=== PATIENT | male | born 1995 | race Two or more races ===

== ENCOUNTER 2017-11-05 19:09 | Emergency (ER) | payer SELFPAY ==
[~2017-11-05] VITALS: Ht 170.2 cm; Wt 87.4 kg
[2017-11-05 19:52] LABS: BASOPHILS # (AUTO) 0.07 x10^3/uL (0-0.1); BASOPHILS % (AUTO) 1 % (0-1); EOSINOPHILS # (AUTO) 0.43 x10^3/uL (0-0.4); EOSINOPHILS % (AUTO) 4 % (1-7); LYMPHOCYTES # (AUTO) 1.83 x10^3/uL (1-3.4); LYMPHOCYTES % (AUTO) 15 % (22-44); MD NO; MEAN CORPUSCULAR HGB CONC 34.1 g/dL (33.2-36.2); MEAN PLATELET VOLUME 8.2 fL (7.4-10.4); MONOCYTES # (AUTO) 0.65 x10^3/uL (0.2-0.8); MONOCYTES % (AUTO) 5 % (2-9); NEUTROPHILS # (AUTO) 9.41 x10^3/uL (1.8-6.8); NEUTROPHILS % (AUTO) 76 % (42-75); PLATELET COUNT 323 x10^3/uL (130-400); RED BLOOD COUNT 5.58 x10^6/uL (4.38-5.82)
[2017-11-05] MEDS ORDERED: KETOROLAC 30 MG/1 ML ONE (19:55)
[2017-11-05] MEDS ORDERED: KETOROLAC 30 MG/1 ML IVPush ONE (20:00)
[2017-11-05 20:02] LABS: ALBUMIN 4.2 g/dL (3.4-5.0); ANION GAP 9 mmol/L (5-15); CALCIUM 8.8 mg/dL (8.5-10.1); CHLORIDE 107 mmol/L (98-107)
[2017-11-05 20:05] LABS: TROPONIN I < 0.015 ng/mL (0.000-0.045)
[2017-11-05 20:32] VITALS: BP 127/67
== END 2017-11-05 20:38 | disposition home or self-care (01) ==
LOC: ED 20:08
DX: I30.0 Acute nonspecific idiopathic pericarditis (principal)
CPT/HCPCS: 36415; 71046; 80048; 82040; 84484; 85025; 93005; 96374; 99285; J1885

== ENCOUNTER 2019-02-15 00:15 | Emergency (ER) | payer SELFPAY ==
[~2019-02-15] VITALS: Ht 170.2 cm; Wt 67.0 kg
--- NOTE | 2019-02-15 00:54 | NUR ---
PT RETURNED FROM ULTRASOUND
[2019-02-15] MEDS ORDERED: KETOROLAC 30 MG/1 ML ONE ×2 (00:56→01:02)
[2019-02-15] MEDS ORDERED: HYDROmorphone 2 MG/ML, 1ML ONE (00:56)
[2019-02-15] MEDS ORDERED: KETOROLAC 30 MG/1 ML IM ONE (01:00)
[2019-02-15] MEDS ORDERED: HYDROmorphone 2 MG/ML, 1ML IM ONE (01:00)
--- NOTE | 2019-02-15 01:04 | NUR ---
MEDICATION DOSAGES GIVEN, PATIENT TOLERATED WELL. NO NOTED ACUTE IDSTRESS.
--- NOTE | 2019-02-15 01:25 | NUR ---
PT ATTEMPTING UA AT THIS TIME.
[2019-02-15] MEDS ORDERED: CEFTRIAXONE 1,000 MG IM ONE (01:30)
[2019-02-15] MEDS ORDERED: CEFTRIAXONE 1,000 MG ONE (01:35)
--- NOTE | 2019-02-15 01:43 | NUR ---
PT CONTINUES TO ATTEMPT FOR UA. PT MEDICATED PER MAR.
[2019-02-15 01:44] VITALS: BP 114/67
[2019-02-15] MEDS ORDERED: DOXYCYCLINE 100MG TABLET ONE (01:49)
[2019-02-15] MEDS ORDERED: DOXYCYCLINE 100MG TABLET PO ONE (02:00)
--- NOTE | 2019-02-15 02:05 | NUR ---
re-educated patient regarding urine specimen and discharge plan. awaiting urine specimen from patient. patient is currently attempting
[2019-02-15 02:40] LABS: MICROSCOPIC AUTO
[2019-02-15 03:03] LABS: CULTURE INDICATED? YES
== END 2019-02-15 02:25 | disposition home or self-care (01) ==
LOC: ED 02:15
DX: N45.1 Epididymitis (principal); N45.2 Orchitis
CPT/HCPCS: 76870; 81001; 87086; 87491; 87591; 96372; 99284; J0696; J1170; J1885